=== PATIENT | female | born 1960 | race Caucasian/White ===

== ENCOUNTER 2021-08-03 07:57 | Day surgery (SDC) | payer BC, OTHER ==
[~2021-08-03 07:57] MED LIST: Lactated Ringers 1,000 ML IV SCH; Sodium Chloride 0.9% 10 ML Syringe FLUSH PRN
[2021-08-03] MEDS ORDERED: Propofol 200 MG/20 ML SDV IV ONE (07:58)
[2021-08-03] MEDS ORDERED: Lidocaine 1% PF 2 ML SDV INJECT ONE (07:58)
[2021-08-03 11:44] VITALS: BP 158/73; PULSE 65
== END 2021-08-03 11:31 | disposition home or self-care (01) ==
LOC: FB.SDS 07:57
PROVIDERS: ATTEND Surgery
DX: Z12.11 Encounter for screening for malignant neoplasm of colon (principal); Z80.0 Family history of malignant neoplasm of digestive organs; Z90.49 Acquired absence of other specified parts of digestive tract; Z86.010 Personal history of colon polyps; Z98.890 Other specified postprocedural states; Z90.711 Acquired absence of uterus with remaining cervical stump; Z79.899 Other long term (current) drug therapy
CPT/HCPCS: 00811; 45378; J2704; J7120